=== PATIENT | female | born 1970 | race Caucasian/White ===

== ENCOUNTER 2019-12-20 08:05 | Inpatient (IN) ==
[2019-12-20] MEDS ORDERED: Albuterol 2.5 MG/3 ML NEBULIZER IH PRN (10:47)
[2019-12-20] MEDS: Budesonide/Formoterol 160/4.5 1 PUFF INH IH SCH ×2 (11:26→22:09)
[2019-12-20] MEDS: Ipratropium/Albuterol Neb 3 ML IH SCH ×3 (11:26→22:09)
[2019-12-20 11:32] LABS: Adenovirus Not Detected (Not Detect); Bordetella Pertussis Not Detected (Not Detect); Chlamydophila pneumoniae Not Detected (Not Detect); Coronavirus 229E Not Detected (Not Detect); Coronavirus HKU1 Not Detected (Not Detect); Coronavirus NL63 Not Detected (Not Detect); Coronavirus OC43 Not Detected (Not Detect); Human Metapneumovirus Not Detected (Not Detect); Human Rhinovirus/Enterovirus Not Detected (Not Detect); Influenza A Subtype 2009 H1 Not Detected (Not Detect); Influenza B Not Detected (Not Detect); Mycoplasma pneumoniae Not Detected (Not Detect); Parainfluenza Virus 1 Not Detected (Not Detect); Parainfluenza Virus 2 Not Detected (Not Detect); Parainfluenza Virus 3 Not Detected (Not Detect); Parainfluenza Virus 4 Not Detected (Not Detect); Respiratory Syncytial Virus Not Detected (Not Detect)
[2019-12-20] MEDS: Azithromycin 500 MG in 0.9 % Sodium Chloride 250 ML IVPB SCH (11:58)
[2019-12-20] MEDS: Gabapentin 300 MG CAPSULE PO SCH ×2 (15:30→20:20)
[2019-12-20] MEDS: MethylPREDNISolone 40 MG/ML VIAL IVP SCH (15:30)
[2019-12-20] MEDS ORDERED: Lactulose Oral Soln 20 GM/30 ML UDC PO ONE (18:00)
[2019-12-20] MEDS: BuPROPion SR (12 HR) 150 MG TABLET PO SCH (20:20)
[2019-12-21] MEDS: MethylPREDNISolone 40 MG/ML VIAL IVP SCH ×4 (00:16→23:43)
[2019-12-21 02:05] LABS: Basophils % 0.1 %; Hematocrit 33.6 % (35.3-44.9); Hemoglobin 10.9 g/dL (11.5-15.4); Immature Granulocytes % 0.7 % (0-4); Mean Corpuscular HGB Conc 32.4 g/dL (31.6-35.5); Mean Corpuscular Hemoglobin 30.5 pg (28.0-33.3); Mean Corpuscular Volume 94.1 fL (83.0-100.0); Mean Platelet Volume 9.9 fL (9.4-12.4); Monocytes # 0.2 K/mcL (0.0-1.3); Monocytes % 1.6 %; Neutrophils # 11.5 K/mcL (1.6-8.9); Platelet Count 302 K/mcL (140-400); Red Blood Count 3.57 M/mcL (3.82-4.97); Red Cell Distribution Width 15.5 % (11.5-14.5); Segmented Neutrophils % 89.6 %; White Blood Count 12.8 K/mcL (4.3-11.1)
[2019-12-21 02:24] LABS: BUN/Creatinine Ratio 20 (6-26); Blood Urea Nitrogen 14 mg/dL (6-20); Calcium 8.9 mg/dL (8.6-10.3); Carbon Dioxide 30 mEq/L (23-29); Chloride 102 mEq/L (98-107); Glucose 161 mg/dL (70-105); Osmolality,Calculated 292 (280-300); Potassium 4.2 mEq/L (3.5-5.1); Sodium 139 mEq/L (136-145); eGFR For African Americans > 60 (> 60); eGFR For Non-African Americans > 60 (> 60)
[2019-12-21] MEDS: Ipratropium/Albuterol Neb 3 ML IH SCH ×4 (04:03→22:30)
[2019-12-21] MEDS: *HR* Enoxaparin 40 MG/0.4 ML SYRINGE SQ SCH (05:27)
[2019-12-21] MEDS: BuPROPion SR (12 HR) 150 MG TABLET PO SCH ×2 (07:18→20:54)
[2019-12-21] MEDS: Gabapentin 300 MG CAPSULE PO SCH ×3 (07:18→20:54)
[2019-12-21] MEDS ORDERED: Acetaminophen 325 MG TABLET PO PRN (09:13)
[2019-12-21] MEDS: Budesonide/Formoterol 160/4.5 1 PUFF INH IH SCH ×2 (10:26→22:30)
[2019-12-21] MEDS: Azithromycin 500 MG in 0.9 % Sodium Chloride 250 ML IVPB SCH (11:30)
[2019-12-21] MEDS: Doxycycline 100 MG in 0.9 % Sodium Chloride Mini Bag 100 ML IVPB SCH (16:31)
[2019-12-22 02:07] LABS: Basophils % 0.2 %; Hematocrit 33.8 % (35.3-44.9); Hemoglobin 11.1 g/dL (11.5-15.4); Immature Granulocytes % 1.3 % (0-4); Lymphocytes # 1.4 K/mcL (0.6-4.6); Lymphocytes % 6.5 %; Mean Corpuscular HGB Conc 32.8 g/dL (31.6-35.5); Mean Corpuscular Hemoglobin 30.6 pg (28.0-33.3); Mean Corpuscular Volume 93.1 fL (83.0-100.0); Mean Platelet Volume 9.9 fL (9.4-12.4); Monocytes # 0.7 K/mcL (0.0-1.3); Platelet Count 326 K/mcL (140-400); Red Blood Count 3.63 M/mcL (3.82-4.97); Red Cell Distribution Width 15.9 % (11.5-14.5)
[2019-12-22 02:11] LABS: Neutrophils # 19.2 K/mcL (1.6-8.9); White Blood Count 21.6 K/mcL (4.3-11.1)
[2019-12-22] MEDS: Ipratropium/Albuterol Neb 3 ML IH SCH ×2 (03:49→10:53)
[2019-12-22] MEDS: Doxycycline 100 MG in 0.9 % Sodium Chloride Mini Bag 100 ML IVPB SCH (05:39)
[2019-12-22] MEDS: *HR* Enoxaparin 40 MG/0.4 ML SYRINGE SQ SCH (05:41)
[2019-12-22 07:48] VITALS: BP 124/76
[2019-12-22] MEDS: Gabapentin 300 MG CAPSULE PO SCH (08:33)
[2019-12-22] MEDS: MethylPREDNISolone 40 MG/ML VIAL IVP SCH (08:33)
[2019-12-22] MEDS: BuPROPion SR (12 HR) 150 MG TABLET PO SCH (08:34)
[2019-12-22] MEDS: Budesonide/Formoterol 160/4.5 1 PUFF INH IH SCH (10:53)
== END 2019-12-22 12:37 | disposition home or self-care (01) | DRG 189 ==
LOC: SUATTDRO 10:22 → ICNU 10:22 → 2NNU 16:05
PROVIDERS: ADMIT Internal Medicine; ATTEND Internal Medicine

== ENCOUNTER 2021-10-02 22:25 | Inpatient (IN) ==
[2021-10-03] MEDS ORDERED: Naloxone 0.4 MG/ML INJ IVP PRN (03:32)
[2021-10-03] MEDS ORDERED: Prochlorperazine 10 MG/2 ML VIAL IVP PRN (03:37)
[2021-10-03 04:39] LABS: Basophils % 0.1 %; Hematocrit 34.8 % (35.3-44.9); Hemoglobin 11.2 g/dL (11.5-15.4); Immature Granulocytes % 2.4 % (0-4); Lymphocytes # 1.3 K/mcL (0.6-4.6); Lymphocytes % 4.5 %; Mean Corpuscular HGB Conc 32.2 g/dL (31.6-35.5); Mean Corpuscular Volume 96.4 fL (83.0-100.0); Mean Platelet Volume 10.1 fL (9.4-12.4); Monocytes # 1.3 K/mcL (0.0-1.3); Monocytes % 4.3 %; Platelet Count 250 K/mcL (140-400); Red Blood Count 3.61 M/mcL (3.82-4.97); Red Cell Distribution Width 14.1 % (11.5-14.5); Segmented Neutrophils % 88.7 %; White Blood Count 29.4 K/mcL (4.3-11.1)
[2021-10-03 04:40] LABS: Neutrophils # 26.1 K/mcL (1.6-8.9)
[2021-10-03] MEDS: Levalbuterol Neb 1.25 MG/3 ML IH SCH ×2 (04:49→07:58)
[2021-10-03 04:50] LABS: ABG Base Excess 0 mEq/L (-2 to 3); ABG HCO3 26 mEq/L (21-27); ABG Oxygen Saturation 91 % (95-98); ABG PCO2 49 mmHg (35-45); ABG PH 7.34 pH Units (7.32-7.45); ABG PO2 65 mmHg (85-104); ABG TCO2 28 mEq/L (20-26)
[2021-10-03 04:59] LABS: Alanine Aminotransferase 13 Units/L (7-52); Albumin 3.4 g/dL (3.5-5.7); Albumin/Globulin Ratio 1.1 (1.1-2.2); Alkaline Phosphatase 72 Units/L (34-104); Aspartate Amino Transferase 14 Units/L (13-39); BUN/Creatinine Ratio 12 (6-26); Bilirubin,Total 0.2 mg/dL (0.3-1.0); Blood Urea Nitrogen 9 mg/dL (6-20); Carbon Dioxide 27 mEq/L (23-29); Chloride 105 mEq/L (98-107); Cholesterol 91 mg/dL (< 200); Globulin 3.2 g/dL (2.4-3.5); Glucose 205 mg/dL (70-105); HDL Cholesterol 45 mg/dL (40-59); Magnesium 1.7 mg/dL (1.6-2.6); Osmolality,Calculated 295 (280-300); Potassium 3.5 mEq/L (3.5-5.1); Sodium 140 mEq/L (136-145); Total Protein 6.6 g/dL (6.4-8.9); Triglycerides 35 mg/dL (< 150); eGFR For African Americans > 60 (> 60); eGFR For Non-African Americans > 60 (> 60)
[2021-10-03 05:00] LABS: LDL Cholesterol,Calculated 39 mg/dL (< 100); Troponin I < 0.03 ng/mL (< 0.04)
[2021-10-03 05:03] LABS: Estimated Average Glucose 137 mg/dl; Hemoglobin A1C 6.4 %
[2021-10-03 05:13] LABS: Thyroid Stimulating Hormone 0.641 mcIU/mL (0.340-5.600)
[2021-10-03] MEDS ORDERED: cefTRIAXone 1,000 MG in 0.9 % Sodium Chloride Mini Bag 100 ML IVPB SCH (06:00)
[2021-10-03] MEDS ORDERED: methylPREDNISolone 125 MG/2 ML VIAL IVP SCH (08:00)
[2021-10-03] MEDS: *HR* Heparin 5,000 UNIT/ML VIAL SQ SCH ×3 (08:51→20:13)
[2021-10-03] MEDS: Aspirin Enteric Coated 81 MG Tablet PO SCH (08:52)
[2021-10-03] MEDS: levoFLOXacin 750 MG/150 ML 750 MG/150 ML BAG IVPB SCH (11:20)
[2021-10-03] MEDS: Ipratropium/Albuterol Neb 3 ML IH SCH ×4 (11:54→23:02)
[2021-10-03] MEDS: Budesonide/Formoterol 160/4.5 1 PUFF INH IH SCH ×2 (11:54→19:47)
[2021-10-03] MEDS ORDERED: Azithromycin 500 MG in 0.9 % Sodium Chloride 250 ML IVPB SCH (19:00)
[2021-10-03] MEDS: methylPREDNISolone 125 MG/2 ML VIAL IVP SCH (20:13)
[2021-10-03 20:48] LABS: Bilirubin,Urine Negative (Negative); Blood,Urine Negative (Negative); Clarity,Urine Clear (Clear); Color,Urine Light-Yellow (Yellow); Glucose,Urine (UA) 50 mg/dL (Normal); Ketones,Urine Negative (Negative); Leukocyte Esterase,Urine Moderate (Negative); Mucus,Urine Few per lpf (None-Few); Nitrite,Urine Negative (Negative); PH,Urine 6.5 pH Units (5.0-8.0); Protein,Urine 50 mg/dL (Neg-Trace); RBC,Urine 0-3 per hpf (0-3); Specific Gravity,Urine 1.027 (1.010-1.025); Squamous Epithelial Cell,Urine Few per hpf (None-Few); Urobilinogen,Urine Normal (Normal); WBC,Urine 0-3 per hpf (0-3)
[2021-10-04 03:13] LABS: Hemoglobin 10.6 g/dL (11.5-15.4); Mean Corpuscular HGB Conc 31.2 g/dL (31.6-35.5); Mean Corpuscular Volume 96.3 fL (83.0-100.0); Mean Platelet Volume 10.4 fL (9.4-12.4); Platelet Count 283 K/mcL (140-400); Red Blood Count 3.53 M/mcL (3.82-4.97); Red Cell Distribution Width 14.2 % (11.5-14.5); White Blood Count 29.4 K/mcL (4.3-11.1)
[2021-10-04 03:29] LABS: BUN/Creatinine Ratio 24 (6-26); Blood Urea Nitrogen 16 mg/dL (6-20); Calcium 8.6 mg/dL (8.6-10.3); Carbon Dioxide 29 mEq/L (23-29); Chloride 105 mEq/L (98-107); Glucose 187 mg/dL (70-105); Osmolality,Calculated 294 (280-300); Potassium 3.9 mEq/L (3.5-5.1); Sodium 139 mEq/L (136-145); eGFR For African Americans > 60 (> 60); eGFR For Non-African Americans > 60 (> 60)
[2021-10-04] MEDS: Ipratropium/Albuterol Neb 3 ML IH SCH ×6 (03:47→23:40)
[2021-10-04] MEDS: *HR* Heparin 5,000 UNIT/ML VIAL SQ SCH ×3 (05:50→21:38)
[2021-10-04] MEDS: methylPREDNISolone 125 MG/2 ML VIAL IVP SCH (05:50)
[2021-10-04] MEDS: Budesonide/Formoterol 160/4.5 1 PUFF INH IH SCH ×2 (07:46→19:52)
[2021-10-04] MEDS: Gabapentin 300 MG CAPSULE PO SCH ×3 (09:46→21:38)
[2021-10-04] MEDS: levoFLOXacin 750 MG/150 ML 750 MG/150 ML BAG IVPB SCH (09:46)
[2021-10-04] MEDS: Loratadine 10 MG TABLET PO SCH (09:47)
[2021-10-04] MEDS: BuPROPion SR (12 HR) 150 MG TABLET PO SCH ×2 (09:47→21:38)
[2021-10-04] MEDS: Aspirin Enteric Coated 81 MG Tablet PO SCH (09:47)
[2021-10-04] MEDS: NALOXONE HCL SL SCH ×2 (09:48→21:31)
[2021-10-04] MEDS: BUPRENORPHINE HCL SL SCH ×2 (09:48→21:31)
[2021-10-04] MEDS ORDERED: Perflutren Lipid Microsphere 1.3 ML in 0.9 % Sodium Chloride 8.7 ML IVP PRN (10:05)
[2021-10-04] MEDS: cefTRIAXone 2,000 MG in Water for inj. (sterile) 20 ML IVP SCH (12:26)
[2021-10-04] MEDS: Acetaminophen 325 MG TABLET PO PRN ×2 (15:52→21:43)
[2021-10-04] MEDS ORDERED: Mirtazapine 15 MG TABLET PO SCH (21:00)
[2021-10-05 01:12] LABS: Amphetamine Screen,Urine Negative ng/mL (Cutoff=1000); Barbiturate Screen,Urine Negative ng/mL (Cutoff=200); Benzodiazepines Screen,Urine Negative ng/mL (Cutoff=200); Cannabinoid Screen,Urine Negative ng/mL (Cutoff = 50); Cocaine Screen,Urine Negative ng/mL (Cutoff= 300); Opiate Screen,Urine Positive ng/mL (Cutoff=300); Phencyclidine Screen,Urine Negative ng/mL (Cutoff=25)
[2021-10-05 03:18] LABS: Hematocrit 33.9 % (35.3-44.9); Hemoglobin 10.3 g/dL (11.5-15.4); Mean Corpuscular HGB Conc 30.4 g/dL (31.6-35.5); Mean Corpuscular Volume 98.8 fL (83.0-100.0); Mean Platelet Volume 10.2 fL (9.4-12.4); Platelet Count 284 K/mcL (140-400); Red Blood Count 3.43 M/mcL (3.82-4.97); Red Cell Distribution Width 14.6 % (11.5-14.5); White Blood Count 24.4 K/mcL (4.3-11.1)
[2021-10-05 03:19] LABS: Basophils # 0.1 K/mcL (0.0-0.2); Basophils % 0.2 %; Eosinophils % 0.1 %; Hematocrit 33.2 % (35.3-44.9); Hemoglobin 10.4 g/dL (11.5-15.4); Immature Granulocytes % 2.3 % (0-4); Lymphocytes # 2.5 K/mcL (0.6-4.6); Lymphocytes % 10.5 %; Mean Corpuscular HGB Conc 31.3 g/dL (31.6-35.5); Mean Corpuscular Hemoglobin 30.7 pg (28.0-33.3); Mean Corpuscular Volume 97.9 fL (83.0-100.0); Mean Platelet Volume 10.4 fL (9.4-12.4); Monocytes # 1.1 K/mcL (0.0-1.3); Monocytes % 4.6 %; Neutrophils # 19.5 K/mcL (1.6-8.9); Platelet Count 299 K/mcL (140-400); Red Blood Count 3.39 M/mcL (3.82-4.97); Red Cell Distribution Width 14.6 % (11.5-14.5); Segmented Neutrophils % 82.3 %; White Blood Count 23.7 K/mcL (4.3-11.1)
[2021-10-05 03:39] LABS: Magnesium 1.9 mg/dL (1.6-2.6)
[2021-10-05] MEDS: Ipratropium/Albuterol Neb 3 ML IH SCH ×5 (03:50→19:59)
[2021-10-05 03:52] LABS: BUN/Creatinine Ratio 25 (6-26); Blood Urea Nitrogen 18 mg/dL (6-20); Calcium 8.1 mg/dL (8.6-10.3); Carbon Dioxide 27 mEq/L (23-29); Chloride 107 mEq/L (98-107); Glucose 130 mg/dL (70-105); Osmolality,Calculated 292 (280-300); Potassium 4.6 mEq/L (3.5-5.1); Sodium 139 mEq/L (136-145); eGFR For African Americans > 60 (> 60); eGFR For Non-African Americans > 60 (> 60)
[2021-10-05] MEDS: *HR* Heparin 5,000 UNIT/ML VIAL SQ SCH ×2 (05:34→14:16)
[2021-10-05] MEDS: Aspirin Enteric Coated 81 MG Tablet PO SCH (07:52)
[2021-10-05] MEDS: Gabapentin 300 MG CAPSULE PO SCH ×2 (07:53→14:20)
[2021-10-05] MEDS: BuPROPion SR (12 HR) 150 MG TABLET PO SCH (07:53)
[2021-10-05] MEDS: BUPRENORPHINE HCL SL SCH (07:53)
[2021-10-05] MEDS: Loratadine 10 MG TABLET PO SCH (07:53)
[2021-10-05] MEDS: NALOXONE HCL SL SCH (07:53)
[2021-10-05] MEDS: Budesonide/Formoterol 160/4.5 1 PUFF INH IH SCH ×2 (08:06→19:59)
[2021-10-05] MEDS ORDERED: predniSONE 20 MG TABLET PO SCH (09:00)
[2021-10-05] MEDS: cefTRIAXone 2,000 MG in Water for inj. (sterile) 20 ML IVP SCH (12:47)
[2021-10-05 15:10] VITALS: BP 132/81; PULSE 97; TEMP 97.8
[2021-10-05 17:59] VITALS: O2SAT 91
[2021-10-05] MEDS ORDERED: FLU Vac QV 21-22 (6Month+)/PF 0.5 ML SYRINGE IM ONE (18:25)
== END 2021-10-05 18:15 | disposition home or self-care (01) | DRG 193 ==
LOC: 3NENU → SUATTDRO 10-03 00:51
PROVIDERS: ADMIT Student in an Organized Health Care Education/Training Program; ATTEND Internal Medicine